=== PATIENT | male | born 1990 | race Two or more races ===

== ENCOUNTER 2024-01-25 00:19 | Emergency (ER) | payer SELFPAY ==
[~2024-01-25] VITALS: Ht 162.6 cm; Wt 57.4 kg
[2024-01-25 00:40] VITALS: BP 135/68; PULSE 70; RESP 18; TEMP 97.6; O2SAT 100
[2024-01-25] MEDS: ACETAMINOPHEN 325 MG TAB PO ONE (02:50)
[2024-01-25] MEDS: BENZOCAINE (DENTAL) 20 % SPRAY 60ML MT ONE (02:51)
[2024-01-25] MEDS ORDERED: IBUP-1455 PO (02:55)
== END 2024-01-25 03:01 | disposition home or self-care (01) ==
LOC: ER 00:19
DX: K08.89 Other specified disorders of teeth and supporting structures (principal); Z79.899 Other long term (current) drug therapy